=== PATIENT | male | born 1995 | race Caucasian/White ===

== ENCOUNTER 2020-01-07 11:12 | Emergency (ER) | payer BC ==
[~2020-01-07] VITALS: Ht 185.4 cm; Wt 77.1 kg
[2020-01-07 11:16] VITALS: BP 166/71
[2020-01-07] MEDS ORDERED: DIPH,PERTUSS(ACELL),TET VAC/PF 0.5 ML IM-VACC ONE ×2 (11:30→11:52)
--- NOTE | 2020-01-07 12:25 | NUR ---
TDAP VACCINE ADMIN PER EMAR, PT TOLERATED WELL. PT GIVEN DC INSTRUCTIONS, AMB TO DC DESK WITH STEADY GAIT. NADN .
== END 2020-01-07 12:26 | disposition home or self-care (01) ==
LOC: ED 12:20
DX: A35 Other tetanus (principal)
CPT/HCPCS: 90471; 90715